=== PATIENT | male | born 1960 | race African-American/Black ===

== ENCOUNTER 2022-09-08 06:54 | Emergency (ER) | payer BC ==
[~2022-09-08] VITALS: Ht 170.2 cm; Wt 134.3 kg
[2022-09-08 06:54] VITALS: BP_SYST 145; PULSE 90; RESP 17; TEMP 97.7; O2SAT 99
--- NOTE | 2022-09-08 06:54 | NUR ---
Patient alert, awake, oriented x 4, speaking in full clear sentences, answers all questions, Patient has no weakness, denies chest pain. Patient endorses mild headache 3/10 PS. Code stroke denied by Dr Loera.
--- NOTE | 2022-09-08 07:05 | NUR ---
PT BIB BLS FROM HOME C/O DIZZINESS AND NEAR FALL. PT STATES NEARLY FELL 0530 THIS AM. PT STATES RODNEY 3/10 PAIN. PT DENIES NAUSEA AND VOMITING AT THIS TIME. PT HX OF NECK SX AND HTN. PT RESTING IN BED WITH RAILS UP VSS
--- NOTE | 2022-09-08 07:07 | NUR ---
ER at bedside examining patient.
[2022-09-08] MEDS ORDERED: MECLIZINE HCL 25 MG TABLET (ANITVERT) PO ONE (07:15)
[2022-09-08 07:30] LABS: EOSINOPHILS # (AUTO) 0.1 K/uL (0.0-0.4); EOSINOPHILS % (AUTO) 1.6 % (0.0-4.0); HEMATOCRIT 36.8 % (36-54); HEMOGLOBIN 12.1 g/dL (14.0-18.0); LYMPHOCYTES # (AUTO) 1.6 K/uL (1.0-5.5); LYMPHOCYTES % (AUTO) 33.2 % (20.5-51.5); MEAN CORPUSCULAR HEMOGLOBIN 30 pg (27-31); MEAN CORPUSCULAR HGB CONC 33 % (32-36); MEAN CORPUSCULAR VOLUME 91 fL (79.0-98.0); MONOCYTES # (AUTO) 0.4 K/uL (0.0-1.0); MONOCYTES % (AUTO) 8.7 % (1.7-9.3); NEUTROPHILS # (AUTO) 2.7 K/uL (1.8-7.7); NEUTROPHILS % (AUTO) 55.5 % (40.0-70.0); PLATELET COUNT (AUTO) 248 K/uL (130-430); RED BLOOD CELL COUNT(AUTO) 4.06 MIL/uL (4.2-6.2); RED CELL DISTRIBUTION WIDTH 13.9 % (9.0-15.0); WHITE BLOOD COUNT (AUTO) 4.8 K/uL (4.8-10.8)
[2022-09-08 07:43] LABS: ANION GAP 5 (5-15); CALCIUM 8.4 mg/dL (8.4-11.0); CHLORIDE 105 mmol/L (98-107); CREATININE 1.14 mg/dL (0.55-1.30); GFR AFRICAN AMERICAN 84 mL/min (>90); GLUCOSE 105 mg/dL (74-106); UREA NITROGEN, BLOOD 12 mg/dL (8-21)
[2022-09-08 07:56] LABS: ALANINE AMINOTRANSFERASE 13 U/L (12-78); ALBUMIN 3.5 g/dL (3.4-4.8); ASPARTATE AMINOTRANSFERASE 13 U/L (10-37); TOTAL BILIRUBIN 0.5 mg/dL (0.0-1.0)
[2022-09-08] MEDS ORDERED: MECL-261 PO (10:15)
[2022-09-08 10:22] VITALS: BP_SYST 136; PULSE 75; RESP 18; TEMP 98.3; O2SAT 98
--- NOTE | 2022-09-08 10:24 | NUR ---
Patient given written and verbal discharge instructions and verbalizes understanding. ER MD DR ALVAREZ discussed with patient the results and treatment provided. Patient in stable condition. ID arm band removed. Rx of ANTIVERT given. Patient educated on pain management and to follow up with PMD. Pain Scale 2/10. Opportunity for questions provided and answered. Medication side effect fact sheet provided.
== END 2022-09-08 10:24 | disposition home or self-care (01) ==
LOC: SED 06:54
DX: R42 Dizziness and giddiness (principal); R11.2 Nausea with vomiting, unspecified; I10 Essential (primary) hypertension; Z79.899 Other long term (current) drug therapy
CPT/HCPCS: 99284; 80053; 82962; 85025; 84484; 36415; 93005; J8597